=== PATIENT | female | born 1995 | race Caucasian/White ===

== ENCOUNTER → 2017-07-22 08:49 | Outpatient (CLI) | payer OTHER ==
[2015-12-27 07:55] VITALS: BMI 19.8
[~2017-07-22 08:49] MED LIST: LOW-OGESTREL1 TAB PO
== END | disposition home or self-care (01) ==
LOC: D.MRI 08:49
DX: R56.9 Unspecified convulsions (principal)

== ENCOUNTER → 2017-08-30 18:10 | Outpatient (CLI) | payer OTHER ==
[2015-12-27 07:55] VITALS: BMI 19.8
[2017-08-30 18:53] LABS: BASOPHILS 0.6 % (0-2); EOSINOPHILS 7.9 % (0-7); HEMATOCRIT 41.5 % (36.0-48.0); HEMOGLOBIN 13.8 g/dL (12-16); IMMATURE GRANULOCYTES 0.3 % (0-5); LYMPHOCYTES 33.2 % (15-50); MCH 29.2 pg (26.0-34.0); MCHC 33.3 g/dL (31.0-37.0); MCV 87.9 fL (80.0-100.0); MEAN PLATELET VOLUME 10.8 fL (7.4-10.4); MONOCYTES 7.5 % (2-11); NEUTROPHILS 50.5 % (40-80); PLATELET COUNT 215 10x3/uL (130-400); RBC 4.72 10x6/uL (4.00-5.40); RDW 12.9 % (11.5-14.5); WBC 6.4 10x3/uL (4.8-10.8)
[2017-08-30 20:44] LABS: ALBUMIN 3.8 g/dL (3.4-5.0); ALKALINE PHOSPHATASE 47 U/L (46-116); ALT (SGPT) 15 U/L (10-68); BILIRUBIN - TOTAL 0.68 mg/dL (0.2-1.3); CALC OSMOLALITY 277 mosm/kg (275-300); CALCIUM 8.7 mg/dL (8.5-10.1); CARBON DIOXIDE 27.2 mmol/L (21.0-32.0); CHLORIDE - SERUM 104 mmol/L (98-107); CREATININE - SERUM 0.7 mg/dL (0.6-1.3); GLUCOSE 81 mg/dL (74-106); POTASSIUM - SERUM 4.3 mmol/L (3.5-5.1); PRE-ALBUMIN 18.1 mg/dL (18.0-35.7); PROTEIN - SERUM 6.9 g/dL (6.4-8.2); SODIUM 141 mmol/L (136-145); T4 THYROXINE 6.8 ug/dL (4.7-13.3); THYROID STIMULATING HORMONE 2.08 uIU/mL (0.36-3.74); UREA NITROGEN 7 mg/dL (7-18); eGFR NON AFRICAN AMERICAN > 90 mL/min (90-120)
[2017-09-01 09:17] LABS: FOLATE (FOLIC ACID) - SERUM 9.1 ng/mL (>3.0)
== END | disposition home or self-care (01) ==
LOC: D.LABREF 18:10
PROVIDERS: Internal Medicine Cardiovascular Disease
DX: R55 Syncope and collapse (principal)

== ENCOUNTER → 2017-09-01 09:01 | Outpatient (CLI) | payer MEDICAID ==
[2015-12-27 07:55] VITALS: BMI 19.8
--- NOTE | ~2017-09-01 | EC ---
PATIENT:DAV DEAN DATE OF SERVICE: 09/01/17 SEX: F MEDICAL RECORD: [id number] DATE OF : [birth year] [facility] AGE OF PATIENT: 22 ADMISSION DATE: 09/01/17 REFERRING PHYSICIAN: INTERPRETING PHYSICIAN: AKANKSHA BARROSO MD ECHOCARDIOGRAM REPORT ECHO CHARGES 4 ECHO COMPLETE Date: 09/01 CLINICAL DIAGNOSIS: SYNCOPE ECHOCARDIOGRAPHIC MEASUREMENTS (adult normal given) AC root (d.<3.7cm) 2.6 cm LV Septum d (<1.2 cm> 0.6 cm Valve Excursion 1.6 cm LV Septum (systole) 1.0 cm Left Atria (s.<4.0cm> 2.3 cm LVPW d(<1.2cm) 0.7 cm RV (d.<2.3cm) 2.0 cm LVPW (sytole) 1.0 cm LV diastole(<5.6CM) 4.2 cm MV E-F(>70mm/sec) cm LV systole 2.5 cm LVOT Diameter 1.3 cm MV exc.(>10mm) cm Est.ejection fraction (50-75%) % DOPPLER: LVIT cm/sec A 39.0 cm/sec E 98.0 cm/sec LA cm/sec RVSP 20.2 mmHg LVOT 96.0 cm/sec AOP1/2T m/s Asc. Ao 112 cm/sec RVOT 55.0 cm/sec RA cm/sec PA 81.0 cm/sec AV Gradient Peak 5.0 mmHg AV Mean 2.9 mmHg AV Area 1.0 cm MV Gradient Peak 3.9 mmHg MV Mean 1.3 mmHg MV Area cm COMMENTS: [facility] [employer] Machine: Jayden MCELROYOE Coordinator Of Rehabilitation Services: 4 Dr. Barroso TAPE# PACS Pericardial Effusion N DATE OF SERVICE: INDICATION: The patient is a 22-year-old white female with a history of syncope. FINDINGS: 1. Left ventricle is normal size, structure and function. 2. Left atrium is normal size, structure and function. 3. The aortic valve is normal. 4. The mitral valve is normal. ECHOCARDIOGRAM REPORT [id number] DAV DEAN 5. The tricuspid valve is normal. 6. The right ventricle is normal. 7. The right atrium is normal. 8. The pericardium is normal. CONCLUSIONS: Normal echocardiogram for the patient's stated age. TRANSINT:[id number] Voice Confirmation ID: [id number] DOCUMENT ID: [id number] AKANKSHA BARROSO MD at 1127 CC: [id number] DICTATION DATE: 09/02/17 0855 CORE COMPOSER FEEDER: 09/02/17 1036 DEP CLI 09/01/17 [id number] [place] [address]
== END | disposition home or self-care (01) ==
LOC: D.ECHO 09:01
DX: R55 Syncope and collapse (principal)